=== PATIENT | female | born 1955 | race Caucasian/White ===

== ENCOUNTER 2017-08-11 19:58 | Emergency (ER) | payer OTHER ==
[~2017-08-11] VITALS: Ht 162.6 cm; Wt 53.5 kg
[~2017-08-11 19:58] MED LIST: ALENDRONATE SOD70 MG PO; DEXILANT60 MG PO; EFFEXOR XR150 MG PO; LEVOTHYROXINE88 MCG PO; NAPROSYN500 MG PO; NORCO 5-325 TA1 EACH PO; TIROSINT25 MCG PO
== END 2017-08-11 20:50 | disposition home or self-care (01) ==
LOC: ED 19:58
DX: H10.9 Unspecified conjunctivitis (principal); E03.9 Hypothyroidism, unspecified; F17.200 Nicotine dependence, unspecified, uncomplicated; Z88.5 Allergy status to narcotic agent; Z79.899 Other long term (current) drug therapy
CPT/HCPCS: 99282

== ENCOUNTER 2017-10-22 11:26 | Emergency (ER) | payer OTHER ==
[~2017-10-22] VITALS: Ht 162.6 cm; Wt 53.5 kg
[2017-10-22] MEDS ORDERED: ACETAMINOPHEN-1 EAC1 PO (11:52)
[2017-10-22] MEDS ORDERED: LEVOTHYROXINE75 MCG PO (11:52)
[2017-10-22] MEDS ORDERED: PRILOSEC OTC20 MG PO (13:02)
--- NOTE | 2017-10-22 21:11 | EKG ---
[facility] [address] [place], [place] [address] Signed Sinus rhythm with sinus arrhythmia with short TN Otherwise normal ECG No previous ECGs available Confirmed by CHARLES THURSTON MD ([id number]) on 10/22/2017 9:11:07 PM Electronically Signed By: CHARLES THURSTON MD 10/22/172110 PATIENT NAME: GARRETT OWENS Electrocardiogram DATE OF : 59 PHYSICIAN: CHARLES THURSTON MD REPORT #: [id number] REPORT IS CONFIDENTIAL AND NOT TO BE RELEASED WITHOUT AUTHORIZATION
== END 2017-10-22 13:40 | disposition home or self-care (01) ==
LOC: ED 11:26
DX: R10.13 Epigastric pain (principal); F17.200 Nicotine dependence, unspecified, uncomplicated; Z88.5 Allergy status to narcotic agent; Z79.899 Other long term (current) drug therapy
CPT/HCPCS: 93005; 93010; 99283

== ENCOUNTER 2018-09-30 13:11 | Day surgery (SDC) | payer OTHER ==
[~2018-09-30] VITALS: Ht 162.6 cm; Wt 56.7 kg
[~2018-09-30 13:11] MED LIST changes: +ACETAMINOPHEN-1 EAC1 PO; +LEVOTHYROXINE75 MCG PO; +PRILOSEC OTC20 MG PO
[2018-09-30] MEDS ORDERED: ULTRAM50 MG PO (13:28)
[2018-09-30] MEDS ORDERED: DEXILANT30 MG PO (13:29)
--- NOTE | 2018-09-30 14:44 | NUR ---
09/30/18 1444 Snehal Lambert 1433 PT ARRIVED TO PACU ON 2L VIA NC AND RESP EVEN AND UNLABORED. PT AWAKE OFF AND ON. PT DENIES PAIN AND NAUSEA. PT REORIENTED TO PACU.
--- NOTE | 2018-10-01 17:54 | OR ---
[facility] [address] [place], [place] [address] Signed DATE OF OPERATION: 09/30/2018 SURGEON: Orlando Michaud MD PREOPERATIVE DIAGNOSES: 1. Epigastric pain and reflux symptoms. 2. Family history of gastric cancer in brother. 3. Colon evaluation, variable bowel habit changes. POSTOPERATIVE DIAGNOSES: 1. Hiatal hernia without esophagitis, antral gastritis. 2. Sigmoid and left-sided diverticula. PROCEDURES PERFORMED: 1. Esophagogastroduodenoscopy with biopsy. 2. Total colonoscopy to cecum. ANESTHESIA: Intravenous sedation, fentanyl 150 mcg and Versed 5 mg. INDICATION: This 63-year-old white woman is a patient of ANUPAM Tariq, who works at [employer]. She has complaints of "acid reflux" including epigastric pain. She does take Dexilant. She has undergone cholecystectomy by me in 2013. She also has diarrhea from time to time, whether or not this is related to cholecystectomy is uncertain. It alternates with constipation. She does smoke 1/2 pack of cigarettes a day. She does have family history of gastric cancer in her brother. At this time, she is to undergo upper endoscopy and colonoscopy to better characterize her problems. The risk of bleeding, infection, and perforation were reviewed with her, she understands and wished to proceed. FINDINGS: Upper endoscopy showed no sign of esophagitis or stricture, but she did have a small hiatal hernia. There was no Catalan epithelium. There was mild antral gastritis, probably smoking related. There was no ulceration however. The duodenum appeared normal. Biopsies were taken nevertheless. CLOtest was equivocal 30 minutes post procedure. Time will be necessary to fully know whether there is Helicobacter pylori. Of special note was some bile in the stomach during the course of the procedure and whether or not she may have bile reflux gastritis is uncertain at this time. Electronically Signed By: ORLANDO MICHAUD MD 10/01/18 1759 PATIENT NAME: GARRETT OWENS OPERATIVE REPORT DATE OF : 59 REPORT #: [id number] PHYSICIAN: ORLANDO MICHAUD MD PCP: MAE RAMOS REPORT IS CONFIDENTIAL AND NOT TO BE RELEASED WITHOUT AUTHORIZATION [facility] [address], [place] [address] Signed On colonoscopy, the prep was good. Complete colonoscopy was undertaken to the cecum without question. She had no sign of polyps or obvious colitis, but did have diverticula scattered through the left sigmoid colon. DESCRIPTION OF PROCEDURE: The patient was brought to the endoscopy suite and given topical Hurricaine spray, hypopharyngeal anesthesia, and placed in lateral decubitus position. A bite block was placed. An Olympus video upper endoscope was passed in the hypopharynx. The vocal cords appeared normal. Scope was advanced to the esophagus throughout its length, it was normal. There was no sign of Catalan epithelium or esophagitis or stricture. There were no varices. The scope was passed to the stomach, which was insufflated with air. There was some bilious fluid within the stomach. Gastric folds were normal. Antral motility appeared normal. There appeared to be fine reticular mucosal gastritis of the antrum. The pylorus was normal. Scope was passed through into the duodenum. The duodenum was entirely normal. Biopsies were obtained to assess for celiac disease. The scope was withdrawn. A biopsy was then taken of the antrum for both MARYANNE and pathologic testing. The scope was withdrawn. Retroflexed view showed a small hiatal hernia, but no other problems of concern. The scope was withdrawn to the esophagus and biopsies were taken of the normal appearing mucosa. Careful withdrawal of scope showed no sign of other abnormality throughout the remaining esophagus. Plans were then made for colonoscopy. The table was rotated and additional sedation given. Digital rectal examination was normal. An Olympus video colonoscope was passed in the rectum and manipulated throughout the colon noting several diverticula, but no sign of stricture or other problem. The scope was ultimately advanced to the cecum. The ileocecal valve and appendiceal orifice were normal. The scope was withdrawn from that point and examination undertaken showed no sign of abnormality other than diverticula. There was no sign of polyps or colitis. Retroflexed view of the rectum was normal as well. The scope was removed. The patient was taken to recovery room in good condition. CONCLUDING DIAGNOSES: 1. Mild gastritis and hiatal hernia, but no esophagitis; uncertain if bile reflux gastritis present. 2. Equivocal CLOtest at 30 minutes post procedure. 3. Normal colon except for diverticulosis. PLAN: Recommend Citrucel one scoop p.o. daily. We will see her back in 4-6 weeks and assess her progress as well as review pathology reports. Electronically Signed By: ORLANDO MICHAUD MD 10/01/18 7383 PATIENT NAME: GARRETT OWENS OPERATIVE REPORT DATE OF : 59 REPORT #: [id number] PHYSICIAN: ORLANDO MICHAUD MD PCP: MAE RAMOS REPORT IS CONFIDENTIAL AND NOT TO BE RELEASED WITHOUT AUTHORIZATION [address] [address] Signed MD ODREEN Rodriguez/MODL /[id number] cc: ANUPAM Tariq Copies: MAE RAMOS ~ Electronically Signed By: ORLANDO MICHAUD MD 10/01/18 1754 PATIENT NAME: GARRETT OWENS OPERATIVE REPORT DATE OF : 59 REPORT #: [id number] PHYSICIAN: ORLANDO MICHAUD MD PCP: MAE RAMOS REPORT IS CONFIDENTIAL AND NOT TO BE RELEASED WITHOUT AUTHORIZATION
== END 2018-09-30 15:25 | disposition home or self-care (01) ==
LOC: OPS 13:11 → DS 14:00 → OPS 14:00
PROVIDERS: Surgery
PROC: 0DB78ZX Excision of Stomach, Pylorus, Via Natural or Artificial Opening Endoscopic, Diagnostic (ICD-10-PCS; 2018-09-30)
PROC: 0DB38ZX Excision of Lower Esophagus, Via Natural or Artificial Opening Endoscopic, Diagnostic (ICD-10-PCS; 2018-09-30)
PROC: 0DJD8ZZ Inspection of Lower Intestinal Tract, Via Natural or Artificial Opening Endoscopic (ICD-10-PCS; principal; 2018-09-30 14:00)
PROC: 0DB98ZX Excision of Duodenum, Via Natural or Artificial Opening Endoscopic, Diagnostic (ICD-10-PCS; 2018-09-30 14:00)
DX: K57.30 Diverticulosis of large intestine without perforation or abscess without bleeding (principal); K29.50 Unspecified chronic gastritis without bleeding; K21.0 Gastro-esophageal reflux disease with esophagitis; K44.9 Diaphragmatic hernia without obstruction or gangrene; G89.29 Other chronic pain; F17.210 Nicotine dependence, cigarettes, uncomplicated; Z88.5 Allergy status to narcotic agent; Z79.899 Other long term (current) drug therapy; Z90.49 Acquired absence of other specified parts of digestive tract; Z80.0 Family history of malignant neoplasm of digestive organs
CPT/HCPCS: 99153; G0500; J2250; J3010

== ENCOUNTER 2022-09-21 12:35 | Day surgery (SDC) | payer MEDICARE, OTHER ==
[~2022-09-21] VITALS: Ht 162.6 cm; Wt 59.0 kg
[~2022-09-21 12:35] MED LIST changes: +BACTRIM DS TAB1 EACH PO; +CIPRO500 MG PO; +DEXILANT30 MG PO; +FLAGYL500 MG PO; +LIPITOR40 MG PO; +ONDANSETRON ODT8 MG PO; +ULTRAM50 MG PO; +VENLAFAXINE HC150 MG PO
[2022-09-21 12:48] VITALS: BP 159/85
--- NOTE | 2022-09-21 14:19 | NUR ---
09/21/22 1419 Anai Fink 1413-PATIENT ARRIVED TO PACU ON 2L NC RR EVEN. PATIENT AWAKE DROWSY DENIES PAIN OR NAUSEA REPORTS "I DON'T KNOW WHERE I AM" ORIENTED TO PACU AND ENCOURAGED TO REST. ABDOMEN SOFT IVF INFUSING.PATIENT DOZES BACK TO SLEEP
[2022-09-21 14:47] VITALS: BP 142/76
--- NOTE | 2022-09-21 15:07 | OR ---
[facility] [address] [place], [place] [address] Signed DATE OF OPERATION: 09/21/2022 SURGEON: Orlando Michaud MD PREOPERATIVE DIAGNOSIS: Recurrent bouts of left lower abdominal pain, presumably diverticulitis. POSTOPERATIVE DIAGNOSIS: No evidence of polyps or malignancy, deep sulci, sigmoid and left colon. PROCEDURE: Total colonoscopy to the cecum. ANESTHESIA: Intravenous sedation; fentanyl 150 mcg and Versed 6 mg. INDICATION: This 67-year-old woman is a patient of Mae Peterson, who has had recurrent bouts of left lower abdominal pain ascribed to "diverticulitis." She did undergo colonoscopy by me in 2019 describing diverticula. Consideration has been made for elective sigmoid resection given her recurrent bouts of left lower abdominal pain. On that basis, colonoscopy is indicated to assess that there are no proximal lesions that would contraindicate resection. The risk of bleeding, infection, and perforation were reviewed with her. She understands and wished to proceed. FINDINGS: The prep was good. Complete colonoscopy was undertaken of the cecum without question. Good visualization of the ileocecal valve and appendiceal orifice was noted. She had no sign of polyps or neoplasm. Within the sigmoid and left colon, I did not see distinct diverticular openings, but rather deep sulci suggestive of the same. DESCRIPTION OF PROCEDURE: The patient was brought to the endoscopy suite and placed in the lateral decubitus position, given intravenous sedation to the point of slurred speech and nystagmus. The patient was somewhat restless during the course of the procedure. Additional sedation was given throughout. The scope was advanced into the rectum and manipulated through the sigmoid which was somewhat distorted and with some angulation deformity. Once past the sigmoid, passage of the scope was relatively straightforward ultimately intubating the cecum. The ileocecal valve and appendiceal orifice were normal. Scope was withdrawn from that point and examination showed no sign of abnormality only deep sulci Electronically Signed By: ORLANDO MICHAUD MD 09/21/22 1507 PATIENT NAME: GARRETT OWENS OPERATIVE REPORT DATE OF : 59 REPORT #: [id number] PHYSICIAN: ORLANDO MICHAUD MD PCP: MAE PETERSON REPORT IS CONFIDENTIAL AND NOT TO BE RELEASED WITHOUT AUTHORIZATION [address] [address] Signed of the left colon and sigmoid with some distortion as before. There is no actual stricture. Further withdrawal to the rectum showed no sign of neoplasm. The scope was removed and the patient was taken to the recovery room in good condition. CONCLUDING DIAGNOSIS: Presumably these diverticular changes of the sigmoid are accounting for recurrent diverticulitis. We will review previous endoscopy report from 2019, as well as any imaging study that may have affirm this. Consideration would be made for a sigmoid resection due to recurrent sigmoid diverticulitis. We will see her back in the office and review her options. MD DOREEN Rodriguez/EWELINA /[id number] cc: ANUPAM Tariq Copies: MAE PETERSON ~ Electronically Signed By: ORLANDO MICHAUD MD 09/21/22 1507 PATIENT NAME: CATHYAPARNAGARRETT Chairez OPERATIVE REPORT DATE OF : 59 REPORT #: [id number] PHYSICIAN: ORLANDO MICHAUD MD PCP: MAE PETERSON REPORT IS CONFIDENTIAL AND NOT TO BE RELEASED WITHOUT AUTHORIZATION
== END 2022-09-21 14:55 | disposition home or self-care (01) ==
LOC: DS 12:35 → OPS 12:35 → DS 14:00 → OPS 14:55
PROVIDERS: ATTEND Surgery
DX: K63.89 Other specified diseases of intestine (principal); G89.29 Other chronic pain; K21.00 Gastro-esophageal reflux disease with esophagitis, without bleeding; Z72.0 Tobacco use; Z88.5 Allergy status to narcotic agent; Z79.899 Other long term (current) drug therapy
CPT/HCPCS: 99153; G0500; J2250; J3010; J7121